=== PATIENT | female | born 1985 | race Asian ===

== ENCOUNTER 2022-07-31 09:47 | Outpatient (CLI) | payer OTHER, SELFPAY | END 2022-07-31 09:48 | disposition home or self-care (01) | LOC: LONREF 09:49 | PROVIDERS: PCP Family Medicine; Visit Provider Nurse Practitioner Family | DX: Z13.6 Encounter for screening for cardiovascular disorders (principal); Z13.1 Encounter for screening for diabetes mellitus | CPT/HCPCS: 80061 ==